=== PATIENT | male | born 1965 | race African-American/Black ===

== ENCOUNTER 2024-12-07 20:02 | Emergency (ER) | payer BC ==
[~2024-12-07] VITALS: Ht 167.6 cm; Wt 65.0 kg
[2024-12-07 20:45] VITALS: BP 136/70; PULSE 65; RESP 18; TEMP 36.9; O2SAT 100
== END 2024-12-08 00:47 | disposition left against medical advice (07) ==
LOC: ER 21:09
DX: M54.2 Cervicalgia (principal)
CPT/HCPCS: 99281